=== PATIENT | male | born 1990 | race Caucasian/White ===

== ENCOUNTER 2023-03-09 22:27 | Emergency (ER) | payer SELFPAY ==
--- OUTSIDE RECORDS SUMMARY | 2023-03-09 22:31 | XMS REPORT | Continuity of Care Document ---
:1990 Author Organization [facility] t Address [address] [facility]. [address] [place] [address] Care Team Providers Name Role Phone Asked, No Pcp Primary Care Physician Unavailable Darin Chang MD Attending Clinician MARIA ELENA MOLINA Attending Clinician Unavailable Problems This patient has no known problems. Allergies, Adverse Reactions, Alerts This patient has no known allergies or adverse reactions. Social History Social Habit Start Date Stop Date Quantity Comments Source [facility] History of tobacco Smokes tobacco [facility] History SDOH [facility] Alcohol Std Drinks [facility] History SDOH [facility] Alcohol Binge Medical Abad ter History of Social 2022-05-14 2022-05-[address] function 00:00:00 00:00:00 Hospital History SDOH 2019-08-09 2019-08-[address] [facility] Alcohol Frequency 00:00:00 00:00:00 Medical Center Alcohol intake 2019-08-08 2019-08-[address] [address] [facility] 00:[facility]00 non-drinker of Medical Ce nter alcohol (finding) Alcohol Comment 2018-10-16 2018-10-16 on occasion [facility] Hospital Cigarettes smoked 2018-10-16 2018-10-[address] current (pack per 00:00:00 00:00:00 Hospita l day) - Reported Tobacco use and 2018-10-16 2018-10-16 Smokeless [facility] 00:00:00 00:00:00 tobacco non-user Hospital Sex Assigned At [birth year] [facility] Cecilia kes 00:00:00 00:00:00 Medical Center Smoking Status Start Date Stop Date Source Smokes tobacco daily 2019-08-08 00:00:00 [facility] Medications Ordered Filled Start Stop Current Ordering Indication Dosage Frequency Signature Comments Components Source Medication Medication Date Date Medication? Clinician (SIG) Name Name amoxicillin 1000mg [id number] Take 2 [facility] (AMOXIL) 05-[id number] 500 MG 00:00: 04:59 3D (1,000 mg Hospi ta capsule 00 :00 total) by l mouth 3 (three) times a day for 7 days. oseltamivir 2018-08 Yes 75mg Take [address] [facility] (TAMIFLU) 24 [facility] 75 MG 00:00: (75 mg Medical capsule 00 total) by Center mouth every 12 (twelve) hours. Vital Signs Vital Name Observation Time Observation Value Comments Source Systolic blood 2022-05-15 00:02:00 129 mm[Hg] [facility] pressure Diastolic blood 2022-05-15 00:02:00 66 mm[Hg] [facility] pressure Heart rate 2022-05-15 00:02:00 63 /min [facility] Body temperature 2022-05-15 00:02:00 36.72 [place] [facility] Respiratory rate 2022-05-15 00:02:00 16 /min [facility] Body height 2022-05-15 00:02:00 175.3 cm [facility] Body weight 2022-05-15 00:02:00 72.576 kg [facility] BMI 2022-05-15 00:02:00 23.63 kg/m2 [facility] Oxygen saturation in 2022-05-15 00:02:00 99 /min [facility] Arterial blood by Pulse oximetry Procedures Procedure Date / Time Performed Performing Clinician Anthony bosch CT HEAD WO CONTRAST 2022-05-15 02:27:00 Pedro Massey [facility] Plan of Care Planned Activity Planned Date Details Comments Source Future Scheduled 2023-01-28 COVID-19 [facility]ACCINE (#1) [facility] Test 18:43:47 [code = COVID-19 VACCINE (#1)] Future Scheduled 2023-01-28 Pneumococcal Vaccine: [facility] Test 18:43:47 Pediatrics (0 to 5 Years) and At-Risk Patients (6 to 64 Years) (1 - PCV) [code = Pneumococcal Vaccine: Pediatrics (0 to 5 Years) and At-Risk Patients (6 to 64 Years) (1 - PCV)] Future Scheduled 2023-01-28 Hepatitis C screening [facility] Test 18:43:47 (procedure) [code = 938264760] Future Scheduled 2023-01-28 INFLUENZA VACCINE [facility] Test 18:43:47 [code = INFLUENZA VACCINE] Encounters Start End Encounter Admission Attending Care Care Encounter Source Date/Time Date/Time Type Type Clinicians Facility Department ID 2022-05-14 2022-05-14 Emergency Darin Chang 1.2.840.1 [id number] [facility] 19:05:00 23:40:[address] 3.430.2.7 Hospit a .3.022781 l .8 2022-05-14 2022-05-14 Travel 1.2.840.1 [id number] [facility] 00:00:00 00:00:[address] 3.430.2.7 0.2.7.3.698 Ho spita .3.181387 084.8 l .8 2022-05-14 2022-05-14 Emergency DARIN CHANG [facility] [id number] [place] 00:00:00 00:00:[address] 2018-01-31 2018-01-31 Outpatient [facility] [id number] Ava 00:00:00 00:00:00 [facility] 2018-01-10 2018-01-12 Outpatient [facility] [id number] Ava 00:00:00 00:00:00 [facility] 2018-01-06 2018-01-06 Outpatient [facility] [id number] Ava 00:00:00 00:00:00 [facility] Results Test Description Test Time Test Comments Results Result Comments Source RAPID INFLUENZA A&B SCREEN 2019-08-08 21:40:00 Test Item Value Reference Range Interpretation Comme nts RAPID INFLUENZA A AG (BEAKER) (test code = 1622) Negative Negative, Inconclusive RAPID INFLUENZA B AG (BEAKER) (test code = 1623) Positive Negative, Inconclusive A
[2023-03-09] MEDS ORDERED: KETOROLAC 30 MG/ML INJ ONE (23:21)
[2023-03-10] MEDS ORDERED: CYCLOBENZAPRINE 10 MG TAB ONE (00:23)
--- NOTE | 2023-03-10 00:33 | ER ---
Nurse's Notes [facility] Name: Jose Alejandro Franklin Age: 32 yrs Sex: Male : 1990 Arrival Date: 03/09/2023 Time: 22:27 Bed 5 Private MD: Diagnosis: rib pain Presentation: 03/09 22:37 Chief complaint: Patient states: " I was wrestling yesterday and the left side of my as6 ribs really hurt". Coronavirus screen: At this time, the client does not indicate any symptoms associated with coronavirus-19. Ebola Screen: No symptoms or risks identified at this time. Initial Sepsis Screen: Does the patient meet any 2 criteria? No. Patient's initial sepsis screen is negative. Does the patient have a suspected source of infection? No. Patient's initial sepsis screen is negative. Risk Assessment: Do you want to hurt yourself or someone else? Patient reports no desire to harm self or others. Onset of symptoms was March 08, 2023. 22:37 Acuity: CHRIS 4 as6 22:37 Method Of Arrival: Ambulatory as6 Historical: - Allergies: 22:38 No Known Allergies; as6 - Home Meds: 22:38 None [Active]; as6 - PMHx: 22:38 None; as6 - PSHx: 22:38 hand; as6 - Immunization history:: Client reports having NOT received the Covid vaccine. - Social history:: Smoking status: Reported history of juuling and/or vaping. Screenin:28 [facility] ED Fall Risk Assessment (Adult) History of falling in the last 3 months, rv including since admission No falls in past 3 months (0 pts) Confusion or Disorientation No (0 pts) Intoxicated or Sedated No (0 pts) Impaired Gait No (0 pts) Mobility Assist Device Used No (0 pt) Altered Elimination No (0 pt) Score/Fall Risk Level 0 - 2 = Low Risk Oriented to surroundings, Maintained a safe environment, Educated pt \\T\\ family on fall prevention, incl call for assistance when getting out of bed, Assessed \\T\\ reinforced patient's understanding of fall precautions, Provided non-skid footwear, Hourly rounding (assess needs \\T\\ fall precautionary measures) done, Used ambulatory aids as needed (educated on \\T\\ assisted with), Used gait belt as appropriate. Abuse screen: Denies threats or abuse. Denies injuries from another. Nutritional screening: No deficits noted. Tuberculosis screening: No symptoms or risk factors identified. Assessment: 23:28 General: Appears uncomfortable, Behavior is calm, cooperative. Pain: Complains of pain rv in left rib cage. Neuro: Level of Consciousness is awake, alert, obeys commands, Oriented to person, place, time, situation. Cardiovascular: Capillary refill < 3 seconds. Respiratory: Airway is patent Respiratory effort is even, unlabored, Breath sounds are clear bilaterally. Derm: Skin is intact. 03/10 00:36 Reassessment: Patient appears in no apparent distress at this time. rv Vital Signs: 03/09 22:36 BP 140 / 86; Pulse 65; Resp 20 S; Temp 97.5(TE); Pulse Ox 100% on R/A; Weight 68.04 kg as6 (R); Height 5 ft. 8 in. (R); Pain 9/10; 03/10 00:36 BP 127 / 81; Pulse 61; Resp 16; Temp 98; Pulse Ox 100% on R/A; rv 03/09 22:36 Body Mass Index 22.81 (68.04 kg, 172.72 cm) as6 03/09 22:36 Pain Scale: Adult as6 Lane Coma Score: 00:36 Eye Response: spontaneous(4). Motor Response: obeys commands(6). Verbal Response: rv oriented(5). Total: 15. ED Course: 03/09 22:29 Patient arrived in ED. mr 22:29 K[facility] Stubbs [facility]-C [facility] kb 22:29 Darius Lloyd MD is Attending Physician. kb 22:38 Triage completed. as6 22:39 Arm band placed on. as6 22:56 Chest Single View XRAY In Process Unspecified. EDMS 22:56 Ribs Left XRAY In Process Unspecified. EDMS 23:27 Lucas Cruz, BETZY is Primary Nurse. rv 23:28 No provider procedures requiring assistance completed. Patient did not have IV access rv during this emergency room visit. 23:30 Patient has correct armband on for positive identification. Call light in reach. Side rv rails up X 1. Adult w/ patient. Client placed on continuous cardiac and pulse oximetry monitoring. NIBP monitoring applied. 03/10 00:36 Provided Education on: pain management. rv Administered Medications: 03/09 23:27 Drug: Ketorolac IM 30 mg Route: IM; Site: right deltoid; rv 03/10 00:37 Follow up: Response: No adverse reaction rv 00:16 Drug: Cyclobenzaprine PO 10 mg Route: PO; jb4 00:37 Follow up: Response: No adverse reaction rv Medication: 00:36 VIS not applicable for this client. rv Outcome: 00:32 Discharge ordered by . kb 00:36 Discharged to home ambulatory, with family. rv 00:36 Condition: good 00:36 Discharge instructions given to patient, Instructed on discharge instructions, follow up and referral plans. medication usage, Demonstrated understanding of instructions, follow-up care, medications, Prescriptions given X 2. 00:37 Patient left the ED. rv Signatures: Dispatcher [employer] EDMS Kalli Stubbs, JACOB-C DEVELOPER DESIGNER-Kristine Hair mr Jomar Christian RN RN jb4 Lucas Cruz RN RN Akbar Gr, BETZY RN as6
--- NOTE | 2023-03-10 00:33 | EDPHYS ---
Physician Documentation [facility] Name: oJse Alejandro Franklin Age: 32 yrs Sex: Male : 1990 Arrival Date: 03/09/2023 Time: 22:27 Bed 5 Private MD: ED Physician Darius Lloyd HPI: 03/10 00:16 This 32 yrs old Male presents to ER via Ambulatory with complaints of Rib pain. kb 00:16 The patient or guardian reports chest pain that is located primarily in the anterior kb chest wall. Onset: The symptoms/episode began/occurred this morning. The pain does not radiate. Associated signs and symptoms: The patient has no apparent associated signs or symptoms. The chest pain is described as aching. Duration: The patient or guardian reports a single episode. Modifying factors: The symptoms are alleviated by rest, the symptoms are aggravated by deep breath, movement, palpation of area. Severity of pain: At its worst the pain was moderate in the emergency department the pain is unchanged. The patient has not experienced similar symptoms in the past. The patient has not recently seen a physician. Pt reports he was wrestling yesterday and hit his left chest. c/o pain to left chest wall today. Historical: - Allergies: 03/09 22:38 No Known Allergies; as6 - Home Meds: 22:38 None [Active]; as6 - PMHx: 22:38 None; as6 - PSHx: 22:38 hand; as6 - Immunization history:: Client reports having NOT received the Covid vaccine. - Social history:: Smoking status: Reported history of juuling and/or vaping. ROS: 03/10 00:15 Constitutional: Negative for fever, chills, and weight loss. kb Cardiovascular: Positive for chest pain, with movement, of the left lateral anterior chest. All other systems are negative. Exam: 00:15 Constitutional: This is a well developed, well nourished patient who is awake, alert, kb and in no acute distress. Head/Face: Normocephalic, atraumatic. ENT: Moist Mucous membranes Cardiovascular: Regular rate and rhythm with a normal S1 and S2. No gallops, murmurs, or rubs. No pulse deficits. Respiratory: Respirations even and unlabored. No increased work of breathing. Talking in full sentences Skin: Warm, dry with normal turgor. Normal color. MS/ Extremity: Pulses equal, no cyanosis. Neurovascular intact. Full, normal range of motion. Neuro: Awake and alert, GCS 15, oriented to person, place, time, and situation. Moves all extremities. Normal gait. 00:15 Chest/axilla: Inspection: normal, Palpation: tenderness, that is moderate, of the left lateral anterior chest, that totally reproduces the patient's complaints. Vital Signs: 03/09 22:36 BP 140 / 86; Pulse 65; Resp 20 S; Temp 97.5(TE); Pulse Ox 100% on R/A; Weight 68.04 kg as6 (R); Height 5 ft. 8 in. (R); Pain 9/10; 03/10 00:36 BP 127 / 81; Pulse 61; Resp 16; Temp 98; Pulse Ox 100% on R/A; rv 03/09 22:36 Body Mass Index 22.81 (68.04 kg, 172.72 cm) as6 03/09 22:36 Pain Scale: Adult as6 Sera Coma Score: 00:36 Eye Response: spontaneous(4). Motor Response: obeys commands(6). Verbal Response: rv oriented(5). Total: 15. MDM: 03/09 22:30 Patient medically screened. olivia 03/10 00:15 Differential diagnosis: contusion, rib fracture. Data reviewed: vital signs, nurses kb notes. 00:31 Differential diagnosis: Blunt Chest Trauma Chest Wall Contusion Chest Wall Injury. kb Counseling: I had a detailed discussion with the patient and/or guardian regarding: the historical points, exam findings, and any diagnostic results supporting the discharge/admit diagnosis, radiology results, the need for outpatient follow up, a family practitioner, to return to the emergency department if symptoms worsen or persist or if there are any questions or concerns that arise at home. 03/09 22:33 Order name: Chest Single View XRAY olivia 03/09 22:33 Order name: Ribs Left XRAY olivia Administered Medications: 03/09 23:27 Drug: Ketorolac IM 30 mg Route: IM; Site: right deltoid; rv 03/10 00:37 Follow up: Response: No adverse reaction rv 00:16 Drug: Cyclobenzaprine PO 10 mg Route: PO; jb4 00:37 Follow up: Response: No adverse reaction rv Disposition: 01:58 Co-signature as Attending Physician, Darius Lloyd MD I agree with the assessment sp4 and plan of care. I reviewed the patient's care provided by the Advanced Practice Provider and agree with the diagnosis and treatment plan. Disposition Summary: 03/10/23 00:32 Discharge Ordered Location: Home kb Condition: Stable kb Diagnosis - rib pain kb Followup: kb - With: Emergency Department - When: As needed - Reason: Worsening of condition Followup: kb - With: Private Physician - When: 2 - 3 days - Reason: Recheck today's complaints, Continuance of care, Re-evaluation by your physician Discharge Instructions: - Discharge Summary Sheet kb - Rib Contusion kb Forms: - Medication Reconciliation Form kb - Thank You Letter kb - Antibiotic Education kb - Prescription Opioid Use kb - Patient Portal Instructions kb Prescriptions: - Diclofenac Sodium 75 mg Oral tablet,delayed release (DR/EC) - take 1 tablet by ORAL route 2 times per day As needed; 30 tablet; Refills: 0, kb Product Selection Permitted - orphenadrine citrate 100 mg Oral Tablet Sustained Release - take 1 tablet by ORAL route 2 times per day As needed; 20 tablet; Refills: 0, kb Product Selection Permitted Signatures: Dispatcher [employer] EDKalli Mccann, MONTESSORI PARAPROFESSIONAL-C MONTESSORI PARAPROFESSIONAL-Jomar Alonzo, BETZY RN jb4 Lucas Cruz, RN Akbar Garsia RN RN as6 Darius Lloyd MD MD sp4
[2023-03-10 04:50] VITALS: O2SAT 100
[2023-03-10 04:52] VITALS: BP 127/81; TEMP 98
--- NOTE | 2023-03-10 13:13 | RAD REPORT ---
EXAM DESCRIPTION: RAD - Ribs Left - 03/09/2023 10:54 pm CLINICAL HISTORY: 32-year-old male with dyspnea. TECHNIQUE: Single view, AP portable chest was obtained. 4 views of the left ribs were obtained. COMPARISON: None. FINDINGS: Chest: Unremarkable cardiac and mediastinal silhouette. Heart size is normal. Lungs are clear without focal opacity, pneumothorax or pleural effusions. Ribs: The visualized bones are within normal limits. IMPRESSION: No acute radiographic abnormalities. Electronically signed by: Tiana Mack MD 03/10/2023 12:07 AM CDT Due to temporary technical issues with the PACS/Fluency reporting system, reports are being signed by the in house radiologist without review as a courtesy to ensure prompt reporting. The interpreting r adiologist is fully responsible for the content of the report.
--- NOTE | 2023-03-10 13:22 | RAD REPORT ---
EXAM DESCRIPTION: RAD - Chest Single View - 03/09/2023 10:54 pm CLINICAL HISTORY: 32-year-old male with dyspnea. TECHNIQUE: Single view, AP portable chest was obtained. 4 views of the left ribs were obtained. COMPARISON: None. FINDINGS: Chest: Unremarkable cardiac and mediastinal silhouette. Heart size is normal. Lungs are clear without focal opacity, pneumothorax or pleural effusions. Ribs: The visualized bones are within normal limits. IMPRESSION: No acute radiographic abnormalities. Electronically signed by: Tiana Mack MD 03/10/2023 12:07 AM CDT Due to temporary technical issues with the PACS/Fluency reporting system, reports are being signed by the in house radiologist without review as a courtesy to ensure prompt reporting. The interpreting r adiologist is fully responsible for the content of the report.
== END 2023-03-10 00:37 | disposition home or self-care (01) ==
LOC: ER 22:27
DX: R07.81 Pleurodynia (principal)
CPT/HCPCS: 71045; 96372; 99284

== ENCOUNTER 2023-03-24 19:47 | Emergency (ER) | payer SELFPAY ==
--- OUTSIDE RECORDS SUMMARY | 2023-03-24 19:51 | XMS REPORT | Continuity of Care Document ---
:1990 Author Organization [facility] t Address [address] [facility]. [address] [place] [address] Care Team Providers Name Role Phone Asked, No Pcp Primary Care Physician Unavailable Darin Chang MD Attending Clinician MARIA ELENA MOLINA Attending Clinician Unavailable Problems This patient has no known problems. Allergies, Adverse Reactions, Alerts This patient has no known allergies or adverse reactions. Social History Social Habit Start Date Stop Date Quantity Comments Source History of tobacco Smokes tobacco [facility] History SDOH [facility] Alcohol Std [...] non-drinker of Medical Ce nter alcohol (finding) Cigarettes smoked 2018-10-16 2018-10-[address] current (pack per 00:00:00 00:00:00 Hospita l day) - Reported Tobacco use and 2018-10-16 2018-10-16 Smokeless [facility] 00:00:00 00:00:00 tobacco non-user Hospital Alcohol Comment 2018-10-16 2018-10-16 on occasion [facility] 00:00:00 00:00:00 Hospital Sex Assigned At [birth year] [facility] kes 00:00:00 00:00:00 Medical Center Smoking Status Start Date Stop Date Source Smokes tobacco daily 2019-08-08 00:00:00 [facility] Medications Ordered Filled Start Stop Current Ordering Indication Dosage Frequency Signature Comments Components Source Medication Medication Date Date Medication? Clinician (SIG) Name Name amoxicillin 1000mg Q.[id number] Take 2 [facility] (AMOXIL) 05-[id number] 500 MG 00:00: 04:59 3D (1,000 mg Hospi ta capsule 00 :00 total) by l mouth 3 (three) times a day for 7 days. oseltamivir 2018-08 Yes 75mg Take [address] [facility] (TAMIFLU) 2-24 capsule [facility]ukes 75 MG 00:00: (75 mg Medical capsule 00 total) by Center mouth every 12 (twelve) hours. oseltamivir 2018-08 Yes 75mg Take [address] (TAMIFLU) 2-24 capsule [facility]ukes 75 MG 00:00: (75 mg Medical capsule 00 total) by Center mouth every 12 (twelve) hours. Vital Signs Vital Name Observation Time Observation Value Comments Source Systolic blood 2022-05-15 00:02:00 129 mm[Hg] [facility] pressure Diastolic blood 2022-05-15 00:02:00 66 mm[Hg] [facility] pressure Heart rate 2022-05-15 00:02:00 63 /min [facility] Body temperature 2022-05-15 00:02:00 36.72 [facility] Respiratory rate 2022-05-15 00:02:00 16 /min [facility] Body height 2022-05-15 00:02:00 175.3 cm [facility] Body weight 2022-05-15 00:02:00 72.576 kg [facility] BMI 2022-05-15 00:02:00 23.63 kg/m2 [facility] Oxygen saturation in 2022-05-15 00:02:00 99 /min [facility] Arterial blood by Pulse oximetry Procedures Procedure Date / Time Performed Performing Clinician Sourc e CT HEAD WO CONTRAST 2022-05-15 02:27:00 Pedro Massey [facility] Plan of Care Planned Activity Planned Date Details Comments Source Future Scheduled 2023-01-28 COVID-19 VACCINE (#1) [facility] Test 18:43:47 [code = COVID-19 VACCINE (#1)] Future Scheduled 2023-01-28 Pneumococcal Vaccine: [facility] Test 18:43:47 Pediatrics (0 to 5 Years) and At-Risk Patients (6 to 64 Years) (1 - PCV) [code = Pneumococcal Vaccine: Pediatrics (0 to 5 Years) and At-Risk Patients (6 to 64 Years) (1 - PCV)] Future Scheduled 2023-01-28 Hepatitis C screening [facility] Test 18:43:47 (procedure) [code = [id number]] Future Scheduled 2023-01-28 INFLUENZA VACCINE [facility] Test 18:43:47 [code = INFLUENZA VACCINE] Encounters Start End Encounter Admission Attending Care Care Encounter Source Date/Time Date/Time Type Type Clinicians Facility Department ID 2022-05-14 2022-05-14 Emergency Darin Chang 1.2.840.1 [id number] [facility] 19:05:00 23:40:[address] 3.430.2.7 Hospit a .3.267405 l .8 2022-05-14 2022-05-14 Travel 1.2.840.1 [id number] [facility] 00:00:00 00:00:[address] 3.430.2.7 0.2.7.3.698 spita .3.858521 084.8 l .8 2018-01-31 2018-01-31 [facility] [id number] [place] 00:00:00 00:00:[address] [facility] 2018-01-10 2018-01-12 Out[facility] [id number] [place] 00:00:00 00:00:[address] [facility] 2018-01-06 2018-01-06 Out[facility] [id number] [place] 00:00:00 00:00:[address] [facility] Results Test Description Test Time Test Comments Results Result Comments Source RAPID INFLUENZA A&B SCREEN 2019-08-08 21:40:00 Test Item Value Reference Range Interpretation Comme nts RAPID INFLUENZA A AG (BEAKER) (test code = 1622) Negative Negative, Inconclusive RAPID INFLUENZA B AG (BEAKER) (test code = 1623) Positive Negative, Inconclusive A
[2023-03-24] MEDS ORDERED: ONDANSETRON 4 MG/2 ML VIAL ONE (21:25)
[2023-03-24] MEDS ORDERED: KETOROLAC 30 MG/ML INJ ONE (21:25)
[2023-03-24] MEDS ORDERED: NA CHLORIDE 0.9% 1,000 ML ONE (21:25)
[2023-03-24 21:39] LABS: Absolute Lymphocytes (CBC) 1.5 K/uL (0.7-4.9); Hematocrit 43.6 % (39.6-49.0); Lymphocytes % 28.9 % (15.3-44.8); MCV 85.3 fL (80-100); MPV 7.3 fL (7.6-11.3); Platelets 339 thou/uL (152-406); RBC Red Blood Cell Count 5.11 M/uL (4.33-5.43); Specific Gravity 1.023 (1.005-1.030); Urine Bilirubin NEGATIVE (Negative); Urine Blood Negative (Negative); Urine Clarity Clear (Clear); Urine Color Light-Yellow (Yellow); Urine Glucose NEGATIVE (Negative); Urine Protein NEGATIVE (Negative); Urine Urobilinogen Normal (Normal); Urine pH 7.5 (5.0-7.0)
[2023-03-24 21:59] LABS: Albumin 3.7 g/dL (3.4-5.0); Bilirubin Total 0.3 mg/dL (0.2-1.0); Potassium 3.9 mEq/L (3.5-5.1); Protein, Total 7.5 g/dL (6.4-8.2)
--- NOTE | 2023-03-24 22:26 | RAD REPORT ---
EXAM DESCRIPTION: CT - Chest For Pe Angio - 03/24/2023 10:15 pm CLINICAL HISTORY: Chest pain;Dyspnea COMPARISON: No comparisons TECHNIQUE: Dynamically enhanced axial 3 mm thick images of the chest were obtained during administra tion of <100> mL Isovue 370 IV contrast. Coronal and oblique reconstruction images were generated and reviewed. Exam utilizes a protocol for optimal evaluation of pulmonary arterial tree. Maximum intensity projections 3D imaging was utilized All CT scans are performed using dose optimization technique as appropriate and may include automated exposure control or mA/KV adjustment according to patient size. FINDINGS: Chest Wall: No suspicious thyroid nodules or pathologic lymphadenopathy. Lungs: No acute abnormality. Pleura: No significant effusions or pneumothorax. Mediastinum/magaly: No pathologic lymphadenopathy. Pulmonary arteries/Aorta: No filling defect identified. No aortic aneurysm. Heart: No significant pericardial effusion. Normal heart size. Upper abdomen: No acute abnormality. Bones: No acute abnormality. IMPRESSION: Negative for pulmonary embolism. No acute findings in the chest.
--- NOTE | 2023-03-24 22:29 | RAD REPORT ---
EXAM DESCRIPTION: CTAbdomen Pelvis W Contrast - 03/24/2023 10:15 pm CLINICAL HISTORY: ABD PAIN COMPARISON: No comparisons TECHNIQUE: CT of the abdomen and pelvis was performed with IV contrast. All CT scans are performed using dose optimization technique as appropriate and may include automated exposure control or mA/KV adjustment according to patient size. FINDINGS: Lower chest: No acute abnormality. Liver: No acute abnormality or suspicious lesions. Biliary: No biliary ductal dilatation. Stomach: No significant focal abnormality. Duodenum: No significant focal abnormality. Pancreas: No significant abnormality. Spleen: No significant abnormality. Adrenal: No suspicious lesions. Kidney/ureter: No hydronephrosis. No renal calculi. Retroperitoneum: No retroperitoneal adenopathy. Vascular: No aneurysm. Bowel: No significant focal abnormality. No appendicitis. Peritoneum: No ascites or free air. Bladder: Grossly unremarkable. Reproductive: No adnexal masses. Bones: No acute fracture. Other: n/a IMPRESSION: No acute intra-abdominal or pelvic finding.
--- NOTE | 2023-03-24 22:55 | ER ---
Nurse's Notes [facility] Name: Jose Alejandro Franklin Age: 33 yrs Sex: Male : 1990 Arrival Date: 03/24/2023 Time: 19:47 Bed 6 Private MD: Diagnosis: Strain of muscle and tendon of back wall of thorax;Strain of muscle and tendon of front wall of thorax;Unspecified symptoms and signs involving the musculoskeletal system Presentation: 03/24 19:56 Chief complaint: Patient states: I was seen here a couple of weeks ago and was cm10 diagnosed with bruised ribs but the pain has not gotten any better. Pt reports left sided rib pain. Coronavirus screen: Vaccine status: Patient reports being unvaccinated. Client denies travel out of the [place] in the last 14 days. Ebola Screen: Patient denies travel to an Ebola-affected area in the 21 days before illness onset. No symptoms or risks identified at this time. Initial Sepsis Screen: Does the patient meet any 2 criteria? No. Patient's initial sepsis screen is negative. Does the patient have a suspected source of infection? No. Patient's initial sepsis screen is negative. Risk Assessment: Do you want to hurt yourself or someone else? Patient reports no desire to harm self or others. Onset of symptoms was March 24, 2023. 19:56 Method Of Arrival: Ambulatory cm10 19:56 Acuity: CHRIS 4 cm10 Triage Assessment: 19:58 General: Appears in no apparent distress. comfortable, Behavior is calm, cooperative. cm10 Pain: Complains of pain in left lateral anterior chest Pain does not radiate. Pain currently is 5 out of 10 on a pain scale. Quality of pain is described as sharp. Neuro: No deficits noted. Level of Consciousness is awake, alert, obeys commands, Oriented to person, place, time, situation. Respiratory: No deficits noted. Airway is patent Respiratory effort is even, unlabored, Respiratory pattern is regular, symmetrical. Historical: - Allergies: 19:57 No Known Allergies; cm10 - Home Meds: 19:57 None [Active]; cm10 - PMHx: 19:57 None; cm10 - PSHx: 19:57 hand; cm10 - Immunization history:: Adult Immunizations unknown. - Social history:: Smoking status: Reported history of juuling and/or vaping. - Family history:: not pertinent. Screenin:23 [facility] ED Fall Risk Assessment (Adult) History of falling in the last 3 months, kd3 including since admission No falls in past 3 months (0 pts) Confusion or Disorientation No (0 pts) Intoxicated or Sedated No (0 pts) Impaired Gait No (0 pts) Mobility Assist Device Used No (0 pt) Altered Elimination No (0 pt) Score/Fall Risk Level 0 - 2 = Low Risk Maintained a safe environment. Abuse screen: Denies threats or abuse. Denies injuries from another. Nutritional screening: No deficits noted. Tuberculosis screening: No symptoms or risk factors identified. Assessment: 22:22 General: Appears in no apparent distress. Behavior is calm, cooperative. Pain: kd3 Complains of pain in left lateral posterior chest. Neuro: Level of Consciousness is awake, alert, obeys commands, Oriented to person, place, time, situation. Cardiovascular: Patient's skin is warm and dry. Respiratory: Airway is patent Trachea midline Respiratory effort is even, unlabored, Respiratory pattern is regular, symmetrical. Vital Signs: 19:56 BP 128 / 80; Pulse 78; Resp 18 S; Temp 98.3; Pulse Ox 97% on R/A; Weight 72.57 kg; cm10 Height 5 ft. 8 in. ; Pain 4/10; 21:29 BP 125 / 87; Pulse 59; Resp 19; Pulse Ox 98% on R/A; kd3 22:23 BP 137 / 70; Pulse 68; Resp 16; Pulse Ox 100% on R/A; kd3 23:14 BP 122 / 76; Pulse 64; Resp 18; Pulse Ox 100% on R/A; kd3 19:56 Body Mass Index 24.33 (72.57 kg, 172.72 cm) cm10 19:56 Pain Scale: Adult cm10 ED Course: 19:49 Patient arrived in ED. ag3 19:57 Triage completed. cm10 19:57 Arm band placed on Patient placed in waiting room. cm10 20:07 Tre Rios MD is Attending Physician. crystal 21:11 Liya Jacobson, BETZY is Primary Nurse. kd3 21:29 CBC with Diff Sent. kd3 21:29 Comprehensive Metabolic Panel Sent. kd3 21:29 Urinalysis w/ reflexes Sent. kd3 22:18 CT Chest For PE Angio In Process Unspecified. EDMS 22:18 CT Abd/Pelvis - IV Contrast Only In Process Unspecified. EDMS 22:24 Patient has correct armband on for positive identification. Provided Education on: . kd3 22:54 Sacha Raphael MD is Referral Physician. [facility] 23:14 No provider procedures requiring assistance completed. IV discontinued, intact, kd3 bleeding controlled, No redness/swelling at site. Pressure dressing applied. Administered Medications: 21:33 Drug: NS 0.9% IV 1000 ml Route: IV; Rate: 1 bolus; Site: right antecubital; kd3 23:15 Follow up: Response: No adverse reaction; IV Status: Completed infusion; IV Intake: kd3 800ml 21:33 Drug: Ketorolac IVP 30 mg Route: IVP; Site: right antecubital; kd3 23:15 Follow up: Response: No adverse reaction; Pain is decreased kd3 21:33 Drug: Ondansetron IVP 4 mg Route: IVP; Site: right antecubital; kd3 23:15 Follow up: Response: No adverse reaction; Nausea is decreased kd3 23:15 Not Given (Patient Refused): fentaNYL (PF) IVP 50 mcg IVP once kd3 Medication: 22:24 VIS not applicable for this client. kd3 Intake: 23:15 IV: 800ml; Total: 800ml. kd3 Outcome: 22:54 Discharge ordered by . [facility] 23:14 Discharged to home ambulatory, with family. kd3 23:14 Condition: stable 23:14 Discharge instructions given to patient, family, Instructed on discharge instructions, follow up and referral plans. Demonstrated understanding of instructions, follow-up care, medications, Prescriptions given X 3. 23:16 Patient left the ED. kd3 Signatures: Dispatcher [employer] EDMS Tre Rios MD MD cha Gomez, Alice ag3 Liya Jacobson RN RN kd3 Jeimy Wang RN RN cm10
--- NOTE | 2023-03-24 22:55 | EDPHYS ---
Physician Documentation [facility] Name: Jose Alejandro Franklin Age: 33 yrs Sex: Male : 1990 Arrival Date: 03/24/2023 Time: 19:47 Bed 6 Private MD: ED Physician Tre Rios HPI: 03/24 21:27 This 33 yrs old Male presents to ER via Ambulatory with complaints of RIB crystal PAIN. 21:27 The patient or guardian reports chest pain that is located primarily in the anterior crystal chest wall. Onset: The symptoms/episode began/occurred 7 day(s) ago. The pain does not radiate. Associated signs and symptoms: The patient has no apparent associated signs or symptoms. The chest pain is described as sharp. Duration: The patient or guardian reports multiple episodes, that are intermittent. Severity of pain: At its worst the pain was mild moderate in the emergency department the pain is unchanged. The patient has experienced similar episodes in the past, several times. Historical: - Allergies: 19:57 No Known Allergies; cm10 - Home Meds: 19:57 None [Active]; cm10 - PMHx: 19:57 None; cm10 - PSHx: 19:57 hand; cm10 - Immunization history:: Adult Immunizations unknown. - Social history:: Smoking status: Reported history of juuling and/or vaping. - Family history:: not pertinent. ROS: 21:27 Constitutional: Negative for fever, chills, and weight loss, Eyes: Negative for injury, crystal pain, redness, and discharge, ENT: Negative for injury, pain, and discharge, Neck: Negative for injury, pain, and swelling, Cardiovascular: Negative for chest pain, palpitations, and edema, Abdomen/GI: Negative for abdominal pain, nausea, vomiting, diarrhea, and constipation, Back: Negative for injury and pain, : Negative for injury, bleeding, discharge, and swelling, MS/Extremity: Negative for injury and deformity, Skin: Negative for injury, rash, and discoloration, Neuro: Negative for headache, weakness, numbness, tingling, and seizure, Psych: Negative for depression, anxiety, suicide ideation, homicidal ideation, and hallucinations, Allergy/Immunology: Negative for hives, rash, and allergies, Endocrine: Negative for neck swelling, polydipsia, polyuria, polyphagia, and marked weight changes, Hematologic/Lymphatic: Negative for swollen nodes, abnormal bleeding, and unusual bruising. 21:27 Respiratory: Positive for left chest wall pain, nmo crepitus. Exam: 21:27 Constitutional: This is a well developed, well nourished patient who is awake, alert, crystal and in no acute distress. Head/Face: Normocephalic, atraumatic. Eyes: Pupils equal round and reactive to light, extra-ocular motions intact. Lids and lashes normal. Conjunctiva and sclera are non-icteric and not injected. Cornea within normal limits. Periorbital areas with no swelling, redness, or edema. ENT: Nares patent. No nasal discharge, no septal abnormalities noted. Tympanic membranes are normal and external auditory canals are clear. Oropharynx with no redness, swelling, or masses, exudates, or evidence of obstruction, uvula midline. Mucous membranes moist. Neck: Trachea midline, no thyromegaly or masses palpated, and no cervical lymphadenopathy. Supple, full range of motion without nuchal rigidity, or vertebral point tenderness. No Meningismus. Chest/axilla: Normal chest wall appearance and motion. Nontender with no deformity. No lesions are appreciated. Cardiovascular: Regular rate and rhythm with a normal S1 and S2. No gallops, murmurs, or rubs. Normal PMI, no JVD. No pulse deficits. Respiratory: Lungs have equal breath sounds bilaterally, clear to auscultation and percussion. No rales, rhonchi or wheezes noted. No increased work of breathing, no retractions or nasal flaring. Abdomen/GI: Soft, non-tender, with normal bowel sounds. No distension or tympany. No guarding or rebound. No evidence of tenderness throughout. Back: No spinal tenderness. No costovertebral tenderness. Full range of motion. Male : Normal genitalia with no discharge or lesions. Skin: Warm, dry with normal turgor. Normal color with no rashes, no lesions, and no evidence of cellulitis. MS/ Extremity: Pulses equal, no cyanosis. Neurovascular intact. Full, normal range of motion. Neuro: Awake and alert, GCS 15, oriented to person, place, time, and situation. Cranial nerves II-XII grossly intact. Motor strength 5/5 in all extremities. Sensory grossly intact. Cerebellar exam normal. Normal gait. Psych: Awake, alert, with orientation to person, place and time. Behavior, mood, and affect are within normal limits. 21:27 Chest/axilla: Inspection: normal, no acute changes, Palpation: tenderness, that is mild, that is moderate, of the left lateral anterior chest and left lateral posterior chest. 21:27 Cardiovascular: Rate: normal, Rhythm: regular, Pulses: Pulses are 4+ in bilateral radial, brachial, femoral, popliteal, posterior tibial and and dorsalis pedis arteries.. Heart sounds: normal, Edema: is not appreciated. 21:54 Chest/axilla: Inspection: Palpation: tenderness, that totally reproduces the patient's crystal complaints. Vital Signs: 19:56 BP 128 / 80; Pulse 78; Resp 18 S; Temp 98.3; Pulse Ox 97% on R/A; Weight 72.57 kg; cm10 Height 5 ft. 8 in. ; Pain 4/10; 21:29 BP 125 / 87; Pulse 59; Resp 19; Pulse Ox 98% on R/A; kd3 22:23 BP 137 / 70; Pulse 68; Resp 16; Pulse Ox 100% on R/A; kd3 23:14 BP 122 / 76; Pulse 64; Resp 18; Pulse Ox 100% on R/A; kd3 19:56 Body Mass Index 24.33 (72.57 kg, 172.72 cm) cm10 19:56 Pain Scale: Adult cm10 MDM: 20:07 Patient medically screened. crsytal 21:31 Differential diagnosis: Blunt Chest Trauma Chest Wall Contusion Chest Wall Injury crystal Hemopericardium Pleural Effusion Pneumomediastinum Pneumopericardium Pneumothorax Pulmonary Contusion Rib Fracture Ruptured Hemidiaphragm. Data reviewed: vital signs, nurses notes, lab test result(s), radiologic studies. Consideration of Admission/Observation Escalation of care including admission/observation considered. I considered the following discharge prescriptions or medication management in the emergency department Medications were administered in the Emergency Department. See MAR. Independent interpretation of the following test(s) in the Emergency Department CT Scan: My interpretation is ct chest and abd/pel. 03/24 20:07 Order name: CBC with Diff; Complete Time: 22:54 [facility] 03/24 20:07 Order name: Comprehensive Metabolic Panel; Complete Time: 22:54 [facility] 03/24 20:07 Order name: Urinalysis w/ reflexes; Complete Time: 22:54 [facility] 03/24 20:10 Order name: CT Chest For PE Angio; Complete Time: 22:54 [facility] 03/24 20:10 Order name: CT Abd/Pelvis - IV Contrast Only; Complete Time: 22:54 [facility] 03/24 21:26 Order name: INCENTIVE SPIROMETRY crystal Administered Medications: 21:33 Drug: NS 0.9% IV 1000 ml Route: IV; Rate: 1 bolus; Site: right antecubital; kd3 23:15 Follow up: Response: No adverse reaction; IV Status: Completed infusion; IV Intake: kd3 800ml 21:33 Drug: Ketorolac IVP 30 mg Route: IVP; Site: right antecubital; kd3 23:15 Follow up: Response: No adverse reaction; Pain is decreased kd3 21:33 Drug: Ondansetron IVP 4 mg Route: IVP; Site: right antecubital; kd3 23:15 Follow up: Response: No adverse reaction; Nausea is decreased kd3 23:15 Not Given (Patient Refused): fentaNYL (PF) IVP 50 mcg IVP once kd3 Disposition Summary: 03/24/23 22:54 Discharge Ordered Location: Home crystal Problem: new crystal Symptoms: have improved crystal Condition: Stable crystal Diagnosis - Strain of muscle and tendon of back wall of thorax crystal - Strain of muscle and tendon of front wall of thorax crystal - Unspecified symptoms and signs involving the musculoskeletal system crystal Followup: crystal - With: Private Physician - When: 2 - 3 days - Reason: Recheck today's complaints, Continuance of care, Re-evaluation by your physician Followup: crystal - With: - When: 2 - 3 days - Reason: Recheck today's complaints, Re-evaluation by your physician Discharge Instructions: - Discharge Summary Sheet crystal - Chest Contusion, Adult crystal - How to Use an Incentive Spirometer crystal - Chest Contusion, Adult, [id number] crystal - Incentive Spirometer Record crystal Forms: - Medication Reconciliation Form crystal - Thank You Letter crystal - Antibiotic Education crystal - Prescription Opioid Use crystal - Patient Portal Instructions crystal - Work release form pf1 Prescriptions: - acetaminophen-codeine 300-30 mg Oral tablet - take 2 tablet by ORAL route every 6 hours; 2 tablet; Refills: 0, Product crystal Selection Permitted - Diclofenac Sodium 75 mg Oral tablet,delayed release (DR/EC) - take 1 tablet by ORAL route 2 times per day; 20 tablet; Refills: 0, Product [facility] Selection Permitted - Cyclobenzaprine 5 mg Oral Tablet - take 1 tablet by ORAL route 3 times per day As needed; 15 tablet; Refills: 0, [facility] Product Selection Permitted Signatures: Dispatcher [employer] EDMS Tre Rios MD MD cha Doucette, Kyli RN RN kd3 Jeimy Wang RN RN cm10 Corrections: (The following items were deleted from the chart) 20:20 20:07 Chest Abdomen Pelvis W Con+CT.RAD.BRZ ordered. EDMS EDMS
[2023-03-24 23:34] VITALS: TEMP 98.3
[2023-03-24 23:37] VITALS: O2SAT 100
[2023-03-24 23:39] VITALS: BP 122/76
== END 2023-03-24 23:16 | disposition home or self-care (01) ==
LOC: ER 19:47
DX: S29.012A Strain of muscle and tendon of back wall of thorax, initial encounter (principal); S29.011A Strain of muscle and tendon of front wall of thorax, initial encounter; R29.91 Unspecified symptoms and signs involving the musculoskeletal system
CPT/HCPCS: 36415; 71275; 74177; 80053; 81003; 85025; J2405; J7030; Q9967

== ENCOUNTER 2023-04-14 13:55 | Emergency (ER) | payer SELFPAY ==
--- OUTSIDE RECORDS SUMMARY | 2023-04-14 13:59 | XMS REPORT | Continuity of Care Document ---
:1990 Author Organization [facility] t Address [address] [place] [address] Care Team Providers Name Role Phone Asked, [...] [facility] Sexual [facility] History SDOH [facility] Alcohol Std Drinks [facility] History SDOH [facility] Alcohol Binge Medical Abad ter History of Social 2022-05-14 2022-05-[address] function 00:00:00 00:00:00 Hospital History SDOH 2019-08-09 2019-08-[address] [facility] Alcohol Frequency 00:00:00 00:00:00 Medical Center Alcohol intake 2019-08-08 2019-08-[address] [facility] 00:[facility]00 00:00:00 non-drinker of Medical Ce nter alcohol (finding) Tobacco use and 2018-10-16 2018-10-16 Smokeless [facility] 00:[facility] 00:00:00 tobacco non-user Hospital Alcohol Comment 2018-10-16 2018-10-16 on occasion [facility] 00:[facility]:00 Hospital Cigarettes smoked 2018-10-16 2018-10-[address] current (pack per 00:00:00 00:00:00 Hospita l day) - Reported Sex Assigned At [birth year] [facility] mgs 00:00:00 00:00:00 Medical Center Smoking Status Start Date Stop Date Source Smokes tobacco daily 2019-08-08 00:00:00 [facility] Medications Ordered Filled Start Stop Current Ordering Indication Dosage Frequency Signature Comments Components Source Medication Medication Date Date Medication? Clinician (SIG) Name Name amoxicillin No 1000mg [id number] Take 2 [facility] (AMOXIL) 05-[id number] 500 MG 00:00: 04:59 3D (1,000 mg Hospi ta capsule 00 :00 total) by l mouth 3 (three) times a day for 7 days. amoxicillin No 1000mg Q.[id number] Take 2 [facility] (AMOXIL) 05-[id number] 500 MG 00:00: 04:59 3D [...] Source Systolic blood 2022-05-15 00:02:00 129 mm[Hg] [facility] pressure Diastolic blood 2022-05-15 00:02:00 66 mm[Hg] [facility] pressure Heart rate 2022-05-15 00:02:00 63 /min [facility] Body temperature 2022-05-15 00:02:00 36.72 [facility] Respiratory rate 2022-05-15 00:02:00 16 /min [facility] Body height 2022-05-15 00:02:00 175.3 cm [facility] Body weight 2022-05-15 00:02:00 72.576 kg [facility] BMI 2022-05-15 00:02:00 23.63 kg/m2 [facility] Oxygen saturation in 2022-05-15 00:02:00 99 /min [facility] Arterial blood by Pulse oximetry Procedures Procedure Date / Time Performed Performing Clinician Sourc e CT HEAD WO CONTRAST 2022-05-15 02:27:00 Pedro Massey [facility] Plan of Care Planned Activity Planned Date Details Comments Source Future Scheduled 2023-04-12 COVID-19 VACCINE (#1) [facility] Test 22:01:09 [code = COVID-19 VACCINE (#1)] Future Scheduled 2023-04-12 Pneumococcal Vaccine: [facility] Test 22:01:09 Pediatrics (0 to 5 Years) and At-Risk Patients (6 to 64 Years) (1 - PCV) [code = Pneumococcal Vaccine: Pediatrics (0 to 5 Years) and At-Risk Patients (6 to 64 Years) (1 - PCV)] Future Scheduled 2023-04-12 Hepatitis C screening [facility] Test 22:01:09 (procedure) [code = 197221996] Future Scheduled 2023-04-12 INFLUENZA VACCINE (#1) [facility] Test 22:01:09 [code = INFLUENZA VACCINE (#1)] Future Scheduled 2023-01-28 COVID-19 VACCINE (#1) [facility] Test 18:43:47 [code = COVID-19 VACCINE (#1)] Future Scheduled 2023-01-28 Pneumococcal Vaccine: [facility] Test 18:43:47 Pediatrics (0 to 5 Years) and At-Risk Patients (6 to 64 Years) (1 - PCV) [code = Pneumococcal Vaccine: Pediatrics (0 to 5 Years) and At-Risk Patients (6 to 64 Years) (1 - PCV)] Future Scheduled 2023-01-28 Hepatitis C screening [facility] Test 18:43:47 (procedure) [code = 715877637] Future Scheduled 2023-01-28 INFLUENZA VACCINE [facility] Test 18:43:47 [code = INFLUENZA VACCINE] Encounters Start End Encounter Admission Attending Care Care Encounter Source Date/Time Date/Time Type Type Clinicians Facility Department ID 2022-05-14 2022-05-14 Emergency Darin Chang 1.2.840.1 [id number] [facility] 19:05:00 23:40:[id number] 3.430.2.7 Hospit a .3.058259 l .8 2022-05-14 2022-05-14 Emergency Darin Chang 1.2.840.1 [id number] [facility] 19:05:00 23:40:[id number] 3.430.2.7 Hospit a .3.673674 l .8 2022-05-14 2022-05-14 Travel 1.2.840.1 [id number] [facility] 00:00:00 00:00:[id number] 3.430.2.7 0.2.7.3.698 Ho spita .3.189770 084.8 l .8 2022-05-14 2022-05-14 Travel 1.2.840.1 [id number] [facility] 00:00:00 00:00:[address] 3.430.2.7 0.2.7.3.698 Ho spita .3.010569 084.8 l .8 2018-01-31 2018-01-31 Outpatient [facility] [id number] [place] 00:00:00 00:00:00 [facility] 2018-01-10 2018-01-12 Outpatient [facility] [id number] [place] 00:00:00 00:00:00 [facility] 2018-01-06 2018-01-06 [facility] [id number] [place] 00:00:00 00:00:00 [facility] Results Test Description Test Time Test Comments Results Result Comments Source RAPID INFLUENZA A&B SCREEN 2019-08-08 21:40:00 Test Item Value Reference Range Interpretation Comme nts RAPID INFLUENZA A AG (BEAKER) (test code = 1622) Negative Negative, Inconclusive RAPID INFLUENZA B AG (BEAKER) (test code = 1623) Positive Negative, Inconclusive A
--- NOTE | 2023-04-14 14:28 | RAD REPORT ---
EXAM DESCRIPTION: Geetha Single View04/14/2023 2:11 pm CLINICAL HISTORY: cough COMPARISON: February 2023 FINDINGS: The lungs appear clear of acute infiltrate. The heart is normal size IMPRESSION: No acute abnormalities displayed
--- NOTE | 2023-04-14 15:11 | ER ---
Nurse's Notes [facility] Name: Jose Alejandro Franklin Age: 33 yrs Sex: Male : 1990 Arrival Date: 04/14/2023 Time: 13:55 Bed 19 Private MD: Diagnosis: COVID-19 Presentation: 04/14 14:12 Chief complaint: Patient states: he has been having flu-like symptoms for approx 3 ap3 days. Coronavirus screen: Client presents with at least one sign or symptom that may indicate coronavirus-19. Ebola Screen: No symptoms or risks identified at this time. Initial Sepsis Screen: Does the patient meet any 2 criteria? No. Patient's initial sepsis screen is negative. Does the patient have a suspected source of infection? Yes: Productive cough/pneumonia. Risk Assessment: Do you want to hurt yourself or someone else? Patient reports no desire to harm self or others. Onset of symptoms was April 11, 2023. 14:12 Method Of Arrival: Ambulatory ap3 14:12 Acuity: CHRIS 4 ap3 Triage Assessment: 14:13 General: Appears in no apparent distress. Behavior is calm, cooperative, appropriate ap3 for age. General: Reports chills for fever for feeling ill for fatigue for. Pain: Denies pain. Neuro: Level of Consciousness is awake, alert, obeys commands, Oriented to person, place, time, situation. Cardiovascular: Patient's skin is warm and dry. Respiratory: Reports cough that is Airway is patent Respiratory effort is even, unlabored, Respiratory pattern is regular, symmetrical. Historical: - Allergies: 14:13 No Known Allergies; ap3 - Home Meds: 14:13 None [Active]; ap3 - PMHx: 14:13 None; ap3 - Immunization history:: Client reports having NOT received the Covid vaccine. - Social history:: Smoking status: Reported history of juuling and/or vaping. Screenin:14 [facility] ED Fall Risk Assessment (Adult) History of falling in the last 3 months, ap3 including since admission No falls in past 3 months (0 pts). Abuse screen: Denies threats or abuse. Nutritional screening: No deficits noted. Tuberculosis screening: No symptoms or risk factors identified. Assessment: 14:18 Reassessment: See triage assessment. General: Appears in no apparent distress. ld1 comfortable, Behavior is calm, cooperative, appropriate for age. Pain: Denies pain. Neuro: Level of Consciousness is awake, alert, obeys commands, Oriented to person, place, time, situation. Cardiovascular: Capillary refill < 3 seconds Patient's skin is warm and dry. Respiratory: Airway is patent Respiratory effort is even, unlabored. GI: Abdomen is flat, non-distended. : No signs and/or symptoms were reported regarding the genitourinary system. Vital Signs: 14:12 BP 143 / 89; Pulse 98; Resp 17; Temp 98.5; Weight 74.84 kg; Height 5 ft. 8 in. ; ap3 14:12 Body Mass Index 25.09 (74.84 kg, 172.72 cm) ap3 ED Course: 13:57 Patient arrived in ED. rg4 13:57 Ani Leyva MD is Attending Physician. sp3 14:12 Marion Chappell, RN is Primary Nurse. ap3 14:13 CXR XRAY In Process Unspecified. EDMS 14:13 Triage completed. ap3 14:14 Arm band placed on right wrist. ap3 14:14 Patient has correct armband on for positive identification. Bed in low position. Call ap3 light in reach. Side rails up X 1. Adult w/ patient. Pulse ox on. NIBP on. 14:18 Strep Sent. ld1 14:18 Flu Sent. ld1 14:18 SARS-COV-2 RT PCR Sent. ld1 14:18 No provider procedures requiring assistance completed. ld1 15:19 Patient did not have IV access during this emergency room visit. ld1 Administered Medications: No medications were administered Medication: 14:14 VIS not applicable for this client. ap3 Outcome: 15:11 Discharge ordered by . sp3 15:19 Discharged to home ambulatory. ld1 15:19 Condition: stable 15:19 Discharge instructions given to patient, Instructed on discharge instructions, follow up and referral plans. Demonstrated understanding of instructions, follow-up care. 15:19 Patient left the ED. ld1 Signatures: Dispatcher [employer] Winsome Gentile rg4 Marion Chappell RN RN ap3 Koki Grey RN RN ld1 Ani Leyva MD MD sp3
--- NOTE | 2023-04-14 15:11 | EDPHYS ---
Physician Documentation [facility] Name: Jose Alejandro Franklin Age: 33 yrs Sex: Male : 1990 Arrival Date: 04/14/2023 Time: 13:55 Bed 19 Private MD: ED Physician Ani Leyva HPI: 04/14 14:34 This 33 yrs old Male presents to ER via Ambulatory with complaints of Flu Symptoms. sp3 14:34 33-year-old male with no past medical history presents with 3-day onset of cough, sp3 congestion, runny nose, body aches without fever. No known sick contacts or travel history reported. Review of systems otherwise negative including headache, neck pain, chest pain, shortness of breath, abdominal pain, nausea, vomiting, diarrhea, rash, or any other signs or symptoms on ROS at this time.. Historical: - Allergies: 14:13 No Known Allergies; ap3 - Home Meds: 14:13 None [Active]; ap3 - PMHx: 14:13 None; ap3 - Immunization history:: Client reports having NOT received the Covid vaccine. - Social history:: Smoking status: Reported history of juuling and/or vaping. ROS: 14:35 Constitutional: Negative for fever, chills, and weight loss, Eyes: Negative for injury, sp3 pain, redness, and discharge, Neck: Negative for injury, pain, and swelling, Cardiovascular: Negative for chest pain, palpitations, and edema, Abdomen/GI: Negative for abdominal pain, nausea, vomiting, diarrhea, and constipation, Back: Negative for injury and pain, MS/Extremity: Negative for injury and deformity, Skin: Negative for injury, rash, and discoloration, Neuro: Negative for headache, weakness, numbness, tingling, and seizure. 14:35 All other systems are negative. Exam: 14:35 Constitutional: This is a well developed, well nourished patient who is awake, alert, sp3 and in no acute distress. Head/Face: Normocephalic, atraumatic. Eyes: Pupils equal round and reactive to light, extra-ocular motions intact. Lids and lashes normal. Conjunctiva and sclera are non-icteric and not injected. Cornea within normal limits. Periorbital areas with no swelling, redness, or edema. Chest/axilla: Normal chest wall appearance and motion. Nontender with no deformity. No lesions are appreciated. Cardiovascular: Regular rate and rhythm with a normal S1 and S2. No gallops, murmurs, or rubs. Normal PMI, no JVD. No pulse deficits. Abdomen/GI: Soft, non-tender, with normal bowel sounds. No distension or tympany. No guarding or rebound. No evidence of tenderness throughout. Back: No spinal tenderness. No costovertebral tenderness. Full range of motion. Skin: Warm, dry with normal turgor. Normal color with no rashes, no lesions, and no evidence of cellulitis. 14:35 ENT: Positive rhinorrhea noted along with nasal congestion.. 14:35 Chest/axilla: Active cough but clear breath sounds with no wheezing rhonchi or rales.. Vital Signs: 14:12 BP 143 / 89; Pulse 98; Resp 17; Temp 98.5; Weight 74.84 kg; Height 5 ft. 8 in. ; ap3 14:12 Body Mass Index 25.09 (74.84 kg, 172.72 cm) ap3 MDM: 14:15 Patient medically screened. sp3 14:35 Data reviewed: vital signs, nurses notes, lab test result(s). ED course: 33-year-old sp3 male with upper respiratory infection symptoms. Differential diagnosis is broad and includes common cold/rhinovirus, COVID-19, influenza, pneumonia, bronchitis, among others. Chest x-ray is clear and we are awaiting remainder of swabs. Swabs are negative, we will edema General viral syndrome and patient recovered at home. Final disposition pending work-up and patient course.. 15:08 ED course: Chest x-ray is clean and patient is COVID-19 positive. We will safely sp3 discharge patient home with general precautions. 04/14 14:02 Order name: SARS-COV-2 RT PCR sp3 04/14 14:02 Order name: Flu sp3 04/14 14:02 Order name: Strep sp3 04/14 14:48 Order name: Throat Culture EDMS 04/14 14:02 Order name: CXR XRAY; Complete Time: :30 sp3 Administered Medications: No medications were administered Disposition Summary: 04/14/23 15:11 Discharge Ordered Location: Home sp3 Condition: Stable sp3 Diagnosis - COVID-19 sp3 Followup: sp3 - With: Private Physician - When: Upon discharge from the Emergency Department - Reason: Continuance of care Followup: sp3 - With: Emergency Department - When: Upon discharge from the Emergency Department - Reason: Continuance of care Discharge Instructions: - Discharge Summary Sheet sp3 - COVID-19 sp3 Forms: - Medication Reconciliation Form sp3 - Thank You Letter sp3 - Antibiotic Education sp3 - Prescription Opioid Use sp3 - Patient Portal Instructions sp3 - Leadership Thank You Letter sp3 Signatures: Dispatcher [employer] Marion Kaye RN RN ap3 Ani Leyva MD MD sp3
[2023-04-14 15:23] VITALS: BP 143/89; TEMP 98.5
== END 2023-04-14 15:19 | disposition home or self-care (01) ==
LOC: ER 13:55
DX: U07.1 COVID-19 (principal)
CPT/HCPCS: 71045; 87070; 87081; 87635; 87804

== ENCOUNTER 2023-06-25 14:44 | Emergency (ER) | payer SELFPAY ==
--- OUTSIDE RECORDS SUMMARY | 2023-06-25 14:48 | XMS REPORT | Continuity of Care Document ---
:1990 Author Organization [facility] t Address [address] [place] [address] Care Team Providers Name Role Phone Asked, No Pcp Primary Care Physician Unavailable Darin Chang MD Attending Clinician MARIA ELENA MOLINA Attending Clinician Unavailable Problems This patient has no known problems. Allergies, Adverse Reactions, Alerts This patient has no known allergies or adverse reactions. Social History Social Habit Start Date Stop Date Quantity Comments Source Gender [facility] History of tobacco Smokes tobacco [facility] History SDOH [...] (finding) Tobacco use and 2018-10-16 2018-10-16 Smokeless [facility] 00:00:00 00:00:00 tobacco non-user Hospital Alcohol Comment 2018-10-16 2018-10-16 on occasion [facility] Cigarettes smoked 2018-10-16 2018-10-[address] current (pack per 00:00:00 00:00:00 Hospita l day) - Reported Sex Assigned At [birth year] [facility] 00:[facility]00 [facility]00 [facility] Smoking Status Start Date Stop Date Source Smokes tobacco daily 2019-08-08 00:00:00 [facility] Medications Ordered Filled Start Stop Current Ordering Indication Dosage Frequency Signature Comments Components Source Medication Medication Date Date Medication? Clinician (SIG) Name Name amoxicillin 2021- No 1000mg [id number] Take 2 [facility] (AMOXIL) 05-[id number] 500 MG 00:00: 04:59 3D (1,000 mg Hospi ta capsule 00 :00 total) by l mouth 3 (three) times a day for 7 days. amoxicillin No 1000mg Q.[id number] Take 2 [facility] (AMOXIL) 05-[id number] 500 MG 00:00: 04:59 3D (1,000 mg Hospi ta capsule 00 :00 total) by l mouth 3 (three) times a day for 7 days. oseltamivir 2018-08 Yes 75mg Take [address] [facility] (TAMIFLU) 2-[facility] 75 MG 00:00: (75 mg Medical capsule 00 total) by Center mouth every 12 (twelve) hours. oseltamivir 2018- Yes 75mg Take [address] [facility] (TAMIFLU) 2-24 [facility] 75 MG 00:00: (75 mg Medical capsule 00 total) by Center mouth every 12 (twelve) hours. oseltamivir 2018- Yes 75mg Take [address] [facility] (TAMIFLU) 2-24 capsule [facility] 75 MG 00:00: (75 mg Medical capsule 00 total) by Center mouth every 12 (twelve) hours. oseltamivir 2018- Yes 75mg Take [address] [facility] (TAMIFLU) 2-24 capsule [facility] 75 MG 00:00: (75 mg Medical capsule 00 total) by Center mouth every 12 (twelve) hours. Vital Signs Vital Name Observation Time Observation Value Comments Source Systolic blood 2022-05-15 00:02:00 129 mm[Hg] [facility] pressure Diastolic blood 2022-05-15 00:02:00 66 mm[Hg] [facility] pressure Heart rate 2022-05-15 00:02:00 63 /min [facility] Body temperature 2022-05-15 00:02:00 36.72 [place] [facility] Respiratory rate 2022-05-15 00:02:00 16 /min [facility] Body height 2022-05-15 00:02:00 175.3 cm [facility] Body weight 2022-05-15 00:02:00 72.576 kg [facility] BMI 2022-05-15 00:02:00 23.63 kg/m2 [facility] Oxygen saturation in 2022-05-15 00:02:00 99 /min [facility] Arterial blood by Pulse oximetry Procedures Procedure Date / Time Performed Performing Clinician [facility] e CT HEAD WO CONTRAST 2022-05-15 02:27:00 Pedro Massey [facility] Plan of Care Planned Activity Planned Date Details Comments Source Future Scheduled 2023-06-10 COVID-19 VACCINE (#1) [facility] Test 11:29:31 [code = COVID-19 VACCINE (#1)] Future Scheduled 2023-06-10 Pneumococcal Vaccine: [facility] Test 11:29:31 Pediatrics (0 to 5 Years) and At-Risk Patients (6 to 64 Years) (1 - PCV) [code = Pneumococcal Vaccine: Pediatrics (0 to 5 Years) and At-Risk Patients (6 to 64 Years) (1 - PCV)] Future Scheduled 2023-06-10 Hepatitis C screening [facility] Test 11:29:31 (procedure) [code = 241488573] Future Scheduled 2023-06-10 INFLUENZA VACCINE (#1) [facility] Test 11:29:31 [code = INFLUENZA VACCINE (#1)] Future Scheduled 2023-04-12 COVID-19 VACCINE (#1) [facility] Test 22:01:09 [code = COVID-19 VACCINE (#1)] Future Scheduled 2023-04-12 Pneumococcal Vaccine: [facility] Test 22:01:09 Pediatrics (0 to 5 Years) and At-Risk Patients (6 to 64 Years) (1 - PCV) [code = Pneumococcal Vaccine: Pediatrics (0 to 5 Years) and At-Risk Patients (6 to 64 Years) (1 - PCV)] Future Scheduled 2023-04-12 Hepatitis C screening [facility] Test 22:01:09 (procedure) [code = [id number]] Future Scheduled 2023-04-12 INFLUENZA VACCINE (#1) [facility] Test 22:01:09 [code = INFLUENZA VACCINE (#1)] Future Scheduled 2023-01-28 COVID-19 VACCINE (#1) [facility] Test 18:43:47 [code = COVID-19 VACCINE (#1)] Future Scheduled 2023-01-28 Pneumococcal Vaccine: [facility] Test 18:43:47 Pediatrics (0 to 5 Years) and At-Risk Patients (6 to 64 Years) (1 - PCV) [code = Pneumococcal Vaccine: Pediatrics (0 to 5 Years) and At-Risk Patients (6 to 64 Years) (1 - PCV)] Future Scheduled 2023-01-28 Hepatitis C screening [facility] Test 18:43:47 (procedure) [code = 004302816] Future Scheduled 2023-01-28 INFLUENZA VACCINE [facility] Test 18:43:47 [code = INFLUENZA VACCINE] Encounters Start End Encounter Admission Attending Care Care Encounter Source Date/Time Date/Time Type Type Clinicians Facility Department ID 2022-05-14 2022-05-14 Emergency Darin Chang [id number] [facility] 19:05:00 23:40:[id number] 3.430.2.7 Hospit a .[id number] l .8 2022-05-14 2022-05-14 Travel 1.2.840.1 [id number] [facility] 00:00:00 00:00:[id number] 3.430.2.7 0.2.7.3.698 [facility] .[id number] 084.8 l .8 2018-01-31 2018-01-31 [facility] [id number] [place] 00:00:00 00:00:00 [facility] 2018-01-10 2018-01-12 Outpatient [facility] [id number] [place] 00:00:00 00:00:00 [facility] 2018-01-06 2018-01-06 Outpatient [facility] [id number] [place] 00:00:00 00:00:00 [facility] Results Test Description Test Time Test Comments Results Result Comments Source RAPID INFLUENZA A&B SCREEN 2019-08-08 21:40:00 Test Item Value Reference Range Interpretation Comme nts RAPID INFLUENZA A AG (BEAKER) (test code = 1622) Negative Negative, Inconclusive RAPID INFLUENZA B AG (BEAKER) (test code = 1623) Positive Negative, Inconclusive A
[2023-06-25] MEDS ORDERED: HYDROCODONE/APAP 5/325 MG TAB ONE (16:03)
[2023-06-25] MEDS ORDERED: TDAP (DIPHTH,PERTUSS(ACELL),TET VAC) 0.5 ML VIAL IMVAC ONE (16:03)
--- NOTE | 2023-06-25 16:25 | RAD REPORT ---
EXAM DESCRIPTION: RAD - Ankle Right 3 View - 06/25/2023 3:48 pm CLINICAL HISTORY: PAIN COMPARISON: No comparisons TECHNIQUE: Right ankle, 3 views. FINDINGS: No fracture, dislocation or periosteal reaction. No joint effusion seen. No joint space na rrowing. Mild soft tissue swelling about the lateral malleolus. IMPRESSION: No acute osseus abnormality. Mild soft tissue swelling about the lateral malleolus.
--- NOTE | 2023-06-25 16:29 | EDPHYS ---
Physician Documentation [facility] Name: Jose Alejandro Franklin Age: 33 yrs Sex: Male : 1990 Arrival Date: 06/25/2023 Time: 14:44 Bed 10 Private MD: ED Physician Ani Leyva HPI: 06/25 15:37 This 33 yrs old Male presents to ER via Unassigned with complaints of Fall Injury, Foot sb4 Pain. 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 states it did not initially sb4 hurt but now he cannot bear weight. additionally, he states he cut his right finger with a kitchen knife a few days ago and now it is swollen and erythematous . Historical: - Allergies: 14:56 No Known Allergies; iw - Home Meds: 14:56 None [Active]; iw - PMHx: 14:56 None; iw - PSHx: 14:56 hand; iw - Immunization history:: Adult Immunizations not up to date. - Social history:: Smoking status: Patient reports the use of cigarette tobacco products. ROS: 15:37 Constitutional: Negative for fever, chills, and weight loss, sb4 15:37 MS/extremity: Positive for injury or acute deformity, decreased range of motion, pain, tenderness, of the right ankle, 15:37 Skin: Positive for erythema, laceration(s), swelling, 15:37 All other systems are negative, Exam: 17:04 Constitutional: This is a well developed, well nourished patient who is awake, alert, sb4 and in no acute distress. Head/Face: Normocephalic, atraumatic. Eyes: Extra-ocular motions intact. Periorbital areas with no swelling, redness, or edema. ENT: Mucous membranes moist. Neuro: Awake and alert, GCS 15, oriented to person, place, time, and situation. Motor strength 5/5 in all extremities. Sensory grossly intact. 17:04 Musculoskeletal/extremity: ROM: limited active range of motion due to pain, limited passive range of motion due to pain, Circulation is intact in all extremities. Pulses: are normal with no appreciated deficits, Perfusion: the patient is normally perfused throughout, Perfusion: the extremity is normally perfused throughout, Calf tenderness, is absent, Sensation intact. Compartment Syndrome exam of affected extremity: is normal. no numbness, no tingling, no sensation deficit, no palor, no weak pulses, Joints: the right ankle displays limited range of motion, pain at rest, painful range of motion, swelling, tenderness, Weight bearing: can bear weight with assistance only, 17:04 Skin: injury, laceration(s), the wound is approximately 2.5 cm(s), that can be described as no foreign body, linear, crusted over, healing, surrounding erythema, Vital Signs: 14:57 BP 115 / 66; Pulse 92; Resp 16; Temp 99.1; Pulse Ox 99% ; Weight 72.57 kg; Height 5 ft. iw 8 in. ; Pain 9/10; 17:00 Pain 6/10; jl7 14:57 Body Mass Index 24.33 (72.57 kg, 172.72 cm) iw 14:57 Pain Scale: Adult iw 17:00 Pain Scale: Adult jl7 MDM: 15:00 Patient medically screened. sb4 17:04 Differential diagnosis: contusion, fracture, sprain, strain. Data reviewed: vital sb4 signs, nurses notes, radiologic studies, and as a result, I will discharge patient. Independent interpretation of the following test(s) in the Emergency Department X-Ray: My interpretation is my interpretation of the ankle xray images are no acute fracture. Counseling: I had a detailed discussion with the patient and/or guardian regarding the historical points, exam findings, and any diagnostic results supporting the discharge/admit diagnosis, radiology results, the need for outpatient follow up, a orthopedic surgeon, if symptoms do not improve. 06/25 15:03 Order name: Ankle Right 3 View XRAY; Complete Time: 16:26 sb4 06/25 16:28 Order name: Walking boot; Complete Time: 16:48 sb4 06/25 16:28 Order name: Crutches; Complete Time: 16:47 sb4 Administered Medications: 15:54 Drug: Boostrix Tdap IM 0.5 ml IM once; as a single dose Route: IM; Site: right deltoid; iw 16:58 Follow up: Response: No adverse reaction jl7 15:54 Drug: HYDROcodone-acetaminophen PO 5 mg-325 mg 2 tabs PO once Route: PO; iw 16:58 Follow up: Response: No adverse reaction jl7 16:59 Follow up: Response: Pain is decreased jl7 Disposition Summary: 06/25/23 16:28 Discharge Ordered Notes: Location: Home sb4 Problem: new sb4 Symptoms: have improved sb4 Condition: Stable sb4 Diagnosis - Sprain of calcaneofibular ligament of right ankle sb4 - Cellulitis of finger sb4 Followup: sb4 - With: Maco Alejandre MD - When: As needed - Reason: Recheck today's complaints, Re-evaluation by your physician Discharge Instructions: - Discharge Summary Sheet sb4 - Ankle Sprain, [id number] sb4 - Cellulitis, Adult, [id number] sb4 Forms: - Work release form eb - Medication Reconciliation Form sb4 - Thank You Letter sb4 - Antibiotic Education sb4 - Prescription Opioid Use sb4 - Patient Portal Instructions sb4 - Leadership Thank You Letter sb4 Prescriptions: - Cephalexin 500 mg Oral Capsule - take 1 capsule ORAL route every 12 hours for 10 days; 20 capsule; Refills: 0, sb4 Product Selection Permitted - Diclofenac Sodium 75 mg Oral Tablet Sustained Release - take 1 tablet ORAL route 2 times per day; 30 tablet; Refills: 0, Product sb4 Selection Permitted Signatures: Dispatcher [employer] Jessica Garza, RN Hannah Vargas PA-C PA-C sb4 Katy Peace RN jl7
--- NOTE | 2023-06-25 16:29 | ER ---
Nurse's Notes [facility] Name: Jose Alejandro Franklin Age: 33 yrs Sex: Male : 1990 Arrival Date: 06/25/2023 Time: 14:44 Bed 10 Private MD: Diagnosis: Sprain of calcaneofibular ligament of right ankle;Cellulitis of finger Presentation: 06/25 14:56 Chief complaint: Patient states: rolled his right foot a couple hours ago, has pain and iw swelling to right ankle and top of foot. 14:56 Acuity: CHRIS 4 iw 17:01 Initial Sepsis Screen: Does the patient meet any 2 criteria? No. Patient's initial jl7 sepsis screen is negative. Does the patient have a suspected source of infection? No. Patient's initial sepsis screen is negative. Historical: - Allergies: 14:56 No Known Allergies; iw - Home Meds: 14:56 None [Active]; iw - PMHx: 14:56 None; iw - PSHx: 14:56 hand; iw - Immunization history:: Adult Immunizations not up to date. - Social history:: Smoking status: Patient reports the use of cigarette tobacco products. Screenin:03 [facility] ED Fall Risk Assessment (Adult) History of falling in the last 3 months, iw including since admission Yes- single mechanical fall (1 pt) Score/Fall Risk Level. Abuse screen: Denies threats or abuse. Denies injuries from another. Nutritional screening: No deficits noted. Tuberculosis screening: No symptoms or risk factors identified. Assessment: 15:02 General: Appears in no apparent distress. Behavior is calm, cooperative. Pain: iw Complains of pain in anterior aspect of right ankle and dorsum of right foot. Neuro: Level of Consciousness is awake, alert, obeys commands, Oriented to person, place, time, situation, Moves all extremities. Cardiovascular: Patient's skin is warm and dry. Respiratory: Airway is patent Respiratory effort is even, unlabored. Derm: Skin is healthy with good turgor. Musculoskeletal: Range of motion: limited in right ankle Swelling present in right foot. Vital Signs: 14:57 BP 115 / 66; Pulse 92; Resp 16; Temp 99.1; Pulse Ox 99% ; Weight 72.57 kg; Height 5 ft. iw 8 in. ; Pain 9/10; 17:00 Pain 6/10; jl7 14:57 Body Mass Index 24.33 (72.57 kg, 172.72 cm) iw 14:57 Pain Scale: Adult iw 17:00 Pain Scale: Adult jl7 ED Course: 14:46 Patient arrived in ED. mg5 14:48 Hannah Gao PA-C is PHCP. sb4 14:48 Ani Leyva MD is Attending Physician. sb4 14:56 Triage completed. iw 14:57 Arm band placed on. iw 15:03 Patient has correct armband on for positive identification. iw 15:16 Katy Peace, RN is Primary Nurse. jl7 15:50 Ankle Right 3 View XRAY In Process Unspecified. EDMS 16:28 Maco Alejandre MD is Referral Physician. sb4 17:00 No provider procedures requiring assistance completed. Patient did not have IV access jl7 during this emergency room visit. Administered Medications: 15:54 Drug: Boostrix Tdap IM 0.5 ml IM once; as a single dose Route: IM; Site: right deltoid; iw 16:58 Follow up: Response: No adverse reaction jl7 15:54 Drug: HYDROcodone-acetaminophen PO 5 mg-325 mg 2 tabs PO once Route: PO; iw 16:58 Follow up: Response: No adverse reaction jl7 16:59 Follow up: Response: Pain is decreased jl7 Medication: 17:00 VIS not applicable for this client. jl7 Outcome: 16:28 Discharge ordered by . sb4 17:00 Discharged to home ambulatory, jl7 17:00 Condition: stable 17:00 Discharge instructions given to patient, Instructed on discharge instructions, follow up and referral plans. medication usage, Demonstrated understanding of instructions, follow-up care, medications, Prescriptions given X 2, 17:01 Patient left the ED. jl7 Signatures: Dispatcher [employer] EDMS Jessica Wright RN RN iw Katy Peace RN RN jl7 Hannah Gao PA-C PA-C sb4 Ruthie Macario mg5
[2023-06-25 17:06] VITALS: BP 115/66; TEMP 99.1; O2SAT 99
== END 2023-06-25 17:01 | disposition home or self-care (01) ==
LOC: ER 14:44
DX: S93.411A Sprain of calcaneofibular ligament of right ankle, initial encounter (principal); L03.011 Cellulitis of right finger
CPT/HCPCS: 96372; 99284